=== PATIENT | male | born 1985 | race African-American/Black ===

== ENCOUNTER 2019-10-28 17:46 | Emergency (ER) | payer OTHER ==
[~2019-10-28] VITALS: Ht 182.9 cm; Wt 125.0 kg
[2019-10-28] MEDS ORDERED: IBUPROFEN 600MG TABLET PO ONE (18:30)
[2019-10-28 20:10] VITALS: BP 157/95
== END 2019-10-28 20:12 | disposition home or self-care (01) ==
LOC: ER 17:46
DX: S50.01XA Contusion of right elbow, initial encounter (principal); V49.49XA Driver injured in collision with other motor vehicles in traffic accident, initial encounter; Y93.89 Activity, other specified; Y92.89 Other specified places as the place of occurrence of the external cause; Y99.8 Other external cause status; M54.2 Cervicalgia; M54.6 Pain in thoracic spine; E11.9 Type 2 diabetes mellitus without complications; I10 Essential (primary) hypertension
CPT/HCPCS: 71045; 73070; 99284